=== PATIENT | male | born 2000 | race Caucasian/White ===

== ENCOUNTER 2023-06-23 19:10 | Emergency (ER) | payer BC ==
[~2023-06-23] VITALS: Ht 188 cm; Wt 77.1 kg
[2023-06-23] MEDS ORDERED: TETANUS & DIPHTHERIA TOX,ADULT 0.5 ML VIAL IM ONE (21:45)
[2023-06-23] MEDS ORDERED: CEFTRIAXONE SODIUM 1,000 MG VIAL IM ONE (21:45)
== END 2023-06-23 21:51 | disposition home or self-care (01) ==
LOC: ER 19:10
DX: S81.852A Open bite, left lower leg, initial encounter (principal); S81.851A Open bite, right lower leg, initial encounter; W54.0XXA Bitten by dog, initial encounter; Y93.89 Activity, other specified; Y92.89 Other specified places as the place of occurrence of the external cause